=== PATIENT | male | born 1975 | race Caucasian/White ===

== ENCOUNTER 2018-05-11 08:20 | Day surgery (SDC) | payer OTHER ==
[~2018-05-11] VITALS: Ht 175.3 cm; Wt 94.8 kg
[2018-05-11 08:57] VITALS: BP 120/64
[2018-05-11] MEDS ORDERED: IBUPROFEN600 MG ORAL (09:03)
--- NOTE | 2018-05-11 09:13 | Pre-Procedure Note/Attestation ---
Pre-Procedure Note/Attestation Complete Prior to Procedure Planned Procedure: bilateral Procedure Narrative: L5-S1 intra-articular facet injections under fluoroscopic guidance. Indications for Procedure Pre-Operative Diagnosis: lumbosacral spondylosis Attestation I attest that I discussed the nature of the procedure; its benefits; risks and complications; and alternatives (and the risks and benefits of such alternatives ), prior to the procedure, with the patient (or the patient's legal account representative). I attest that, if there was a reasonable possibility of needing a blood transfusion, the patient (or the patient's legal account representative) was given the [place] [employer] [facility] standardized written summary, pursuant to the [place] Blood Safety Act ([place] Health and Safety Code # 1645, as amended). I attest that I re-evaluated the patient just prior to the surgery and that there has been no change in the patient's H&P, except as documented below: Edith Jenkins MD May 11, 2018 09:13
[2018-05-11] MEDS ORDERED: Depo-Medrol 80mg Vial IARTIC SCH (09:15)
[2018-05-11] MEDS ORDERED: Lidocaine 1% MPF 10mg/ml 5ml INJ SCH (09:15)
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
--- NOTE | 2018-05-11 09:52 | Brief Operative Note ---
Immediate Post Operative Note Operative Note Chief Complaint: Lower back pain and right leg pain Pre-op Diagnosis: lumbosacral spondylosis Procedure: Bilateral L5-S1 intra-articular facet injections. Post-op Diagnosis: Lumbosacral spondylosis with radiculopathy Post-op Diagnosis: same as pre-op Findings: consistent w/pre-op dx studies Surgeon: Edith Jenkins MD Service Advisor: none Additional Surgeons: none Anesthesiologist: none Anesthesia: local Specimen: none Complications: none Condition: stable Fluids: none Estimated Blood Loss: none Drains: none Packing: none Tourniquet time: 0 Implant(s) used?: No Edith Jenkins MD May 11, 2018 09:52
--- NOTE | 2018-05-11 09:55 | Discharge Summary ---
Discharge Summary Hospital Course Date of Admission 05/11/2018 Date of Discharge 05/11/2018 Admitting Diagnosis Lumbosacral spondylosis with radiculopathy. Reason for Hospitalization: short stay for a pain injection HPI Brett Campos is a 42 year old male who was admitted on for Intervertebral Disc Displacement Lumbo Sacral Re Consultations none Procedures Bilateral L5-S1 intra-articular facet injections Hospital Course short stay Discharge Condition Upon Discharge: stable Discharge Disposition Patient was discharged to home. Discharge Diagnoses: (1) Lumbosacral spondylosis (2) Lumbar disc herniation with radiculopathy Discharge Instructions Discharge Instructions Follow up with: Dr. Jenkins Diet: regular Activity: as tolerated For Surgical Patients Clean and Dry: surgical site Dressing Care: may change May shower: Yes Contact your physician for: bleeding, pain, tenderness, redness, swelling, yellowish discharge in the op. site Edith Jenkins MD May 11, 2018 09:55
[2018-05-11 10:00] VITALS: BP 140/78
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
--- NOTE | 2018-05-11 15:39 | Diagnostic Imaging Report ---
INDICATION: Pain, intraoperative TECHNIQUE: Intraoperative imaging Fluoroscopy time: 25 seconds Total dose: [id number] mGym2 Total number of images: One COMPARISON: None FINDINGS: Intraoperative images document contrast opacification overlying the lower lumbar spine IMPRESSION: Intraoperative imaging, as described
== END 2018-05-11 10:10 | disposition home or self-care (01) ==
LOC: EDBD → SUR 08:20
DX: M47.27 Other spondylosis with radiculopathy, lumbosacral region (principal); G62.9 Polyneuropathy, unspecified
CPT/HCPCS: 64493; J1030; J1040; J3490; Q9967; 62323